=== PATIENT | female | born 1995 | race Caucasian/White ===

== ENCOUNTER 2016-08-22 19:57 | Inpatient (IN) | payer BC ==
[~2016-08-22] VITALS: Ht 165.1 cm; Wt 56.5 kg
[2016-08-22 20:02] VITALS: BP 107/70; PULSE 117; RESP 20; TEMP 99.1; O2SAT 100
[2016-08-22 20:08] VITALS: BP 107/70; PULSE 123; RESP 18; O2SAT 100
[2016-08-22] MEDS ORDERED: SODIUM CHLOR 0.9% 1000 ML INJ 1,000 ML IV ONE ×2 (20:15→21:15)
[2016-08-22] MEDS ORDERED: ONDANSETRON HCL 4 MG/2 ML VIAL IV PUSH ONE (20:15)
[2016-08-22 20:45] LABS: AUTOMATED NEUTROPHIL # 0.9 TH/MM3 (1.8-7.7); BASOPHIL % 0.3 % (0.0-2.0); EOSINOPHIL % 0.2 % (0.0-4.0); HEMATOCRIT 40.4 % (35.0-46.0); LYMPH % 33.2 % (9.0-44.0); LYMPHOCYTE # 0.5 TH/MM3 (1.0-4.8); MEAN CELL VOLUME 86.6 FL (80.0-100.0); MEAN CORPUSCULAR HEMOGLOBIN 29.7 PG (27.0-34.0); MEAN CORPUSCULAR HGB CONC 34.3 % (32.0-36.0); MONO % 0.6 % (0.0-8.0); NEUT % 65.7 % (16.0-70.0); PLATELET COUNT 182 TH/MM3 (150-450); RED BLOOD COUNT 4.67 MIL/MM3 (4.00-5.30); RED CELL DISTRIBUTION WIDTH 13.7 % (11.6-17.2); WHITE BLOOD COUNT 1.4 TH/MM3 (4.0-11.0)
[2016-08-22 20:47] LABS: HEMO FLAGS AUTO DIFF
[2016-08-22 20:59] LABS: ANION GAP 10 MEQ/L (5-15); AST (GOT) 124 U/L (16-38); BICARBONATE 24.3 MEQ/L (21.0-32.0); BLOOD UREA NITROGEN 8 MG/DL (7-18); CHLORIDE 110 MEQ/L (98-107); GLOMERULAR FILTRATION RATE 76 ML/MIN (>89); POTASSIUM 3.6 MEQ/L (3.5-5.1); SODIUM (NA) 144 MEQ/L (136-145)
[2016-08-22 21:00] LABS: ALT (GPT) 109 U/L (9-42)
[2016-08-22 21:02] LABS: ALKALINE PHOSPHATASE 66 U/L (45-117); TOTAL BILIRUBIN ADULT 0.9 MG/DL (0.2-1.0)
[2016-08-22 21:19] LABS: BANDS 5 % (0-6); POLYS (SEG NEUTROPHILS) 64 % (16-70); WBC DIFF SAMPLE 100
[2016-08-22 21:20] LABS: PLATELET ESTIMATE SMEAR NORMAL (NORMAL); PLATELET MORPHOLOGY NORMAL (NORMAL); SCAN/DIFF FINAL DIFF MANUAL
--- NOTE | 2016-08-22 21:33 | RADRPT ---
EXAM DATE/TIME: 08/22/2016 21:15 [place] COMPARISON: No previous studies available for comparison. INDICATIONS : Cough starting today MEDICAL HISTORY : None. SURGICAL HISTORY : None. ENCOUNTER: Initial ACUITY: 1 day PAIN SCORE: Non-responsive. LOCATION: Bilateral chest FINDINGS: PA and lateral views of the chest demonstrate the lungs to be symmetrically aerated without evidence of mass, infiltrate or effusion. The cardiomediastinal contours are unremarkable. Osseous structure s are intact. CONCLUSION: No acute disease. Curtis Fairbanks MD on August 22, 2016 at 21:31 Board Certified Radiologist. This report was verified electronically.
[2016-08-22 22:59] LABS: BACTERIA, URINE MOD /hpf; BLOOD, URINE LARGE (NEG); COMMENT (UR) CULTURE INDICATED; CULTURE IF INDICATED CULTURE INDICATED; GLUCOSE,URINE NEG (NEG); KETONE, URINE 10 mg/dL (NEG); MUCUS URINE FEW /lpf (OCC); NITRITE,URINE NEG (NEG); SQUAMOUS EPITHELIAL CELL URINE <1 /hpf (0-5); URINE COLOR YELLOW (YELLW/STRAW)
[2016-08-22 23:15] LABS: AMPHETAMINE, URINE POS (NEG); BARBITURATES, URINE NEG (NEG); COCAINE, URINE NEG (NEG)
[2016-08-22] MEDS ORDERED: cefTRIAXone INJ 1,000 MG in SODIUM CHLORIDE 0.9% INJ 100 ML IV ONE (23:15)
--- NOTE | 2016-08-22 23:22 | PD ---
HPI Chief Complaint: Alcohol/Drug Intoxication Time Seen by Provider: 20:09 Travel History International Travel<30 days: No Contact w/Intl Traveler<30days: No Traveled to known affect area: No History of Present Illness HPI Patient is a 20 year old female, with history of IVDA, who comes in after she injected herself today with what she thought was heroine. She then called 9-1-1 because she says she was not feeling safe. She has some lower abdominal pain, but denies any other complaints. She has not had chest pain, fever, chills. PFSH Past Medical History Tetanus Vaccination: < 5 Years Influenza Vaccination: No ?: Unknown LMP: 08/20/16 : 0 Past Surgical History Appendectomy: Yes Social History Alcohol Use: No Tobacco Use: Yes Substance Use: Yes (HEROIN) Allergies-Medications (Allergen,Severity, Reaction): Coded Allergies: No Known Allergies (Unverified , 08/22/16) Reported Meds & Prescriptions Reported Meds & Active Scripts Active No Active Prescriptions or Reported Medications Review of Systems Except as stated in HPI: all other systems reviewed are Neg General / Constitutional: No: Fever, Chills HENT: No: Headaches, Lightheadedness Cardiovascular: No: Chest Pain or Discomfort Respiratory: No: Shortness of Breath Gastrointestinal: Positive: Abdominal Pain, No: Nausea, Vomiting Musculoskeletal: No: Myalgias Skin: No Rash, No Change in Pigmentation Neurologic: No: Weakness, Dizziness Physical Exam Narrative GENERAL: Awake and alert, in no acute distress. SKIN: Focused skin assessment warm/dry. HEAD: Atraumatic. Normocephalic. EYES: Pupils equal and round. No scleral icterus. ENT: No nasal bleeding or discharge. Mucous membranes pink and moist. NECK: Trachea midline. No JVD. CARDIOVASCULAR: Tachycardia. No murmur appreciated. RESPIRATORY: No accessory muscle use. Clear to auscultation. Breath sounds equal bilaterally. GASTROINTESTINAL: Abdomen soft, nondistended. Tender to palpation of the lower abdomen. No rebound or guarding. MUSCULOSKELETAL: No obvious deformities. No clubbing. No cyanosis. No edema. NEUROLOGICAL: Awake and alert. No obvious cranial nerve deficits. Motor grossly within normal limits. Normal speech. PSYCHIATRIC: Appropriate mood and affect; insight and judgment normal. Data Data Last Documented VS Vital Signs Date Time Temp Pulse Resp B/P Pulse Ox O2 Delivery O2 Flow Rate FiO2 08/22/16 20:08 125 20 100 Room Air 08/22/16 20:08 107/70 08/22/16 20:02 99.1 Orders Complete Blood Count With Diff (08/22/16 20:10) Comprehensive Metabolic Panel (08/22/16 20:10) Ed Urine Pregnancytest Poc (08/22/16 20:10) Sodium Chlor 0.9% 1000 Ml Inj (Ns 1000 M (08/22/16 20:15) Ondansetron Inj (Zofran Inj) (08/22/16 20:15) Urinalysis - C+S If Indicated (08/22/16 20:58) Chest, Pa & Lat (08/22/16 ) Drug Screen, Random Urine (08/22/16 21:05) Sodium Chlor 0.9% 1000 Ml Inj (Ns 1000 M (08/22/16 21:15) Urine Culture (08/22/16 22:10) Ceftriaxone Inj (Rocephin Inj) (08/22/16 23:15) Blood Culture (08/22/16 23:21) Admit Order (Ed Use Only) (08/22/16 ) Vancomycin Inj (Vancomycin Inj) (08/22/16 23:30) Admit To Inpatient (08/22/16 ) Vital Signs (Adult) Q4H (08/22/16 23:17) Activity Oob With Assistance (08/22/16 23:17) Computer Forensics Analyst / Telemetry .CONTINUOUS (08/22/16:17) Intake + Output SINDHU.QSHIFT (08/22/16 23:17) Diet Regular Basic (08/23/16 Breakfast) Sodium Chlor 0.9% 1000 Ml Inj (Ns 1000 M (08/22/16 23:17) Sodium Chloride 0.9% Flush (Ns Flush) (08/22/16 23:30) Sodium Chloride 0.9% Flush (Ns Flush) (08/23/16 09:00) Ondansetron Inj (Zofran Inj) (08/22/16 23:30) Comprehensive Metabolic Panel (08/23/16 06:00) Complete Blood Count With Diff (08/23/16 06:00) Scd Bilateral/Knee High SINDHU.BID (08/22/16 23:17) Saw Bilateral/Knee High SINDHU.QSHIFT (08/22/16 23:17) Acetaminophen (Tylenol) (08/22/16 23:30) Oxycodone (Roxicodone) (08/22/16 23:30) Oxycodone (Roxicodone) (08/22/16 23:30) Docusate Sodium-Senna (Anju-Colace) (08/23/16 09:00) Magnesium Hydroxide Liq (Milk Of Magnesi (08/22/16 23:30) Sennosides (Senokot) (08/22/16 23:30) Bisacodyl Supp (Dulcolax Supp) (08/22/16 23:30) Lactulose Liq (Lactulose Liq) (08/22/16 23:30) Inpatient Certification (08/22/16 ) Cefepime Inj (Maxipime Inj) (08/23/16 09:00) Vancomycin Consult Pharmacy (Vancomycin (08/22/16 23:30) Labs Laboratory Tests Test 08/22/16 08/22/16 08/22/16 20:25 22:10 22:15 White Blood Count 1.4 TH/MM3 Red Blood Count 4.67 MIL/MM3 Hemoglobin 13.9 GM/DL Hematocrit 40.4 % Mean Corpuscular Volume 86.6 FL Mean Corpuscular Hemoglobin 29.7 PG Mean Corpuscular Hemoglobin 34.3 % Concent Red Cell Distribution Width 13.7 % Platelet Count 182 TH/MM3 Mean Platelet Volume 8.4 FL Neutrophils (%) (Auto) 65.7 % Lymphocytes (%) (Auto) 33.2 % Monocytes (%) (Auto) 0.6 % Eosinophils (%) (Auto) 0.2 % Basophils (%) (Auto) 0.3 % Neutrophils # (Auto) 0.9 TH/MM3 Lymphocytes # (Auto) 0.5 TH/MM3 Monocytes # (Auto) 0.0 TH/MM3 Eosinophils # (Auto) 0.0 TH/MM3 Basophils # (Auto) 0.0 TH/MM3 CBC Comment AUTO DIFF Differential Total Cells 100 Counted Neutrophils % (Manual) 64 % Band Neutrophils % 5 % Lymphocytes % 31 % Neutrophils # (Manual) 1.0 TH/MM3 Differential Comment FINAL DIFF MANUAL Platelet Estimate NORMAL Platelet Morphology Comment NORMAL Sodium Level 144 MEQ/L Potassium Level 3.6 MEQ/L Chloride Level 110 MEQ/L Carbon Dioxide Level 24.3 MEQ/L Anion Gap 10 MEQ/L Blood Urea Nitrogen 8 MG/DL Creatinine 0.95 MG/DL Estimat Glomerular Filtration 76 ML/MIN Rate Random Glucose 100 MG/DL Calcium Level 8.6 MG/DL Total Bilirubin 0.9 MG/DL Aspartate Amino Transf 124 U/L (AST/SGOT) Alanine Aminotransferase 109 U/L (ALT/SGPT) Alkaline Phosphatase 66 U/L Total Protein 6.3 GM/DL Albumin 3.8 GM/DL Urine Color YELLOW Urine Turbidity HAZY Urine pH 7.0 Urine Specific [place] 1.007 Urine Protein TRACE mg/dL Urine Glucose (UA) NEG mg/dL Urine Ketones 10 mg/dL Urine Occult Blood LARGE Urine Nitrite NEG Urine Bilirubin NEG Urine Urobilinogen LESS THAN 2.0 MG/DL Urine Leukocyte Esterase SMALL Urine RBC 143 /hpf Urine WBC 18 /hpf Urine Squamous Epithelial <1 /hpf Cells Urine Bacteria MOD /hpf Urine Mucus FEW /lpf Microscopic Urinalysis Comment CULTURE INDICATED Urine Opiates Screen NEG Urine Barbiturates Screen NEG Urine Amphetamines Screen POS Urine Benzodiazepines Screen NEG Urine Cocaine Screen NEG Urine Cannabinoids Screen NEG MDM Medical Decision Making Medical Screen Exam Complete: Yes Emergency Medical Condition: Yes Differential Diagnosis Intoxication versus UTI versus dehydration Narrative Course Patient is a 20-year-old female who comes in after she injected herself with drugs. She is found to be tachycardic. IV established, labs sent. Labs showing neutropenia with total neutrophils of 900. Urinalysis is positive for UTI. Patient given Rocephin and vancomycin was added. Tox screen is positive for amphetamines, not opiates. Patient given 2 L of IV fluids. She will be admitted for further management. Diagnosis Primary Impression: Neutropenia Qualified Code: D70.9 - Neutropenia, unspecified type Additional Impression: UTI (urinary tract infection) Qualified Code: N30.00 - Acute cystitis without hematuria Admitting Information Admitting Physician Requests: Admit Scripts No Active Prescriptions or Reported Meds Laura Lake MD Aug 22, 2016 23:22
--- NOTE | 2016-08-22 23:24 | HHI.HP ---
[facility] Service [facility] Primary Care Physician No Primary Care Physician Admission Diagnosis Sepsis, neutropenia Diagnoses: (1) Sepsis Diagnosis: Principal (2) UTI (urinary tract infection) Diagnosis: Principal (3) Neutropenia Diagnosis: Principal (4) IVDU (intravenous drug user) Diagnosis: Principal (5) Tobacco abuse Diagnosis: Principal Travel History International Travel<30 Days: No Contact w/Intl Traveler <30 Da: No Traveled to Known Affected Are: No History of Present Illness This is a 20-year-old female with a PMH of IVDU with Heroin and Tobacco Abuse who the ER by EMS after complaints of not feeling well shortly after injecting Heroin. Per patient, started to feel "weird" after using Heroin. Upon EMS arrival, BP 63/43 s/p IVF w/ improvement. Denies fever, chills, cough or sick contacts. On arrival, BP 107/70, HR 117, O2 sat 100% on RA, Temp 99.1. WBC 1.4 , no previous labs for comparison. Chemistry unremarkable support GFR 76. LFTs mildly elevated no previous labs for comparison. UA positive for UTI and hematuria. Urine Drug Screen positive for amphetamines. CXR with no acute findings. S/p Urine/Blood Cultures in ER and Vanc/Rocephin Review of Systems Except as stated in HPI: all other systems reviewed are Neg ROS: 14 point review of systems otherwise negative. Past Family Social History Past Medical History PMH: IVDU with Heroin and Tobacco Abuse Past Surgical History PAST SURGICAL HISTORY: Appendectomy Allergies: Coded Allergies: No Known Allergies (Unverified , 08/22/16) Family History PAST FAMILY HISTORY: Reviewed. No h/o DM or CAD Social History PAST SOCIAL HISTORY: Negative for alcohol. Positive for tobacco. IVDU with Heroin Physical Exam Vital Signs Vital Signs Date Time Temp Pulse Resp B/P Pulse Ox O2 Delivery O2 Flow Rate FiO2 08/22/16 20:08 125 20 100 Room Air 08/22/16 20:08 126 20 08/22/16 20:08 123 18 107/70 100 Room Air 08/22/16 20:02 99.1 117 20 107/70 100 Physical Exam PE: GENERAL: Young female in no acute distress. HEENT: PERRLA, EOMI. No scleral icterus or conjunctival pallor. No lid lag or facial droop. CARDIOVASCULAR: Regular rate and rhythm. No obvious murmurs to auscultation. No chest tenderness to palpation. RESPIRATORY: No obvious rhonchi or wheezing. Clear to auscultation. Breath sounds equal bilaterally. GASTROINTESTINAL: Abdomen soft, non-tender, nondistended. BS normal. MUSCULOSKELETAL: Extremities without clubbing, cyanosis, or edema. No obvious deformities. NEUROLOGICAL: Awake, alert and oriented x4. No focal neurologic deficits. Moving both upper and lower extremities spontaneously. Laboratory Laboratory Tests Test 08/22/16 08/22/16 20:25 22:10 White Blood Count 1.4 Red Blood Count 4.67 Hemoglobin 13.9 Hematocrit 40.4 Mean Corpuscular Volume 86.6 Mean Corpuscular Hemoglobin 29.7 Mean Corpuscular Hemoglobin 34.3 Concent Red Cell Distribution Width 13.7 Platelet Count 182 Mean Platelet Volume 8.4 Neutrophils (%) (Auto) 65.7 Lymphocytes (%) (Auto) 33.2 Monocytes (%) (Auto) 0.6 Eosinophils (%) (Auto) 0.2 Basophils (%) (Auto) 0.3 Neutrophils # (Auto) 0.9 Lymphocytes # (Auto) 0.5 Monocytes # (Auto) 0.0 Eosinophils # (Auto) 0.0 Basophils # (Auto) 0.0 CBC Comment AUTO DIFF Differential Total Cells 100 Counted Neutrophils % (Manual) 64 Band Neutrophils % 5 Lymphocytes % 31 Neutrophils # (Manual) 1.0 Differential Comment FINAL DIFF MANUAL Platelet Estimate NORMAL Platelet Morphology Comment NORMAL Sodium Level 144 Potassium Level 3.6 Chloride Level 110 Carbon Dioxide Level 24.3 Anion Gap 10 Blood Urea Nitrogen 8 Creatinine 0.95 Estimat Glomerular Filtration 76 Rate Random Glucose 100 Calcium Level 8.6 Total Bilirubin 0.9 Aspartate Amino Transf 124 (AST/SGOT) Alanine Aminotransferase 109 (ALT/SGPT) Alkaline Phosphatase 66 Total Protein 6.3 Albumin 3.8 Urine Color YELLOW Urine Turbidity HAZY Urine pH 7.0 Urine Specific [place] 1.007 Urine Protein TRACE Urine Glucose (UA) NEG Urine Ketones 10 Urine Occult Blood LARGE Urine Nitrite NEG Urine Bilirubin NEG Urine Urobilinogen LESS THAN 2.0 Urine Leukocyte Esterase SMALL Urine RBC 143 Urine WBC 18 Urine Squamous Epithelial <1 Cells Urine Bacteria MOD Urine Mucus FEW Microscopic Urinalysis Comment CULTURE INDICATED Date/Time Procedure Status Source Growth 08/22/16 22:10 Urine Culture Received Urine Clean Catch Pending Result Diagram: 08/22/16202408/22/162024 Assessment and Plan Problem List: (1) Sepsis ICD Code: A41.9 Status: Acute (2) Neutropenia ICD Code: D70.9 Status: Acute (3) UTI (urinary tract infection) ICD Code: N39.0 Status: Acute (4) IVDU (intravenous drug user) ICD Code: F19.90 Status: Acute (5) Tobacco abuse ICD Code: Z72.0 Status: Acute Assessment and Plan A/P: 1. Sepsis: Temp 99.1, WBC 1.4, Source-UTI, possible bacteremia from IVDU. S/ p Blood/Urine Culture, Vanc/Rocephin in ER. Follow up cultures, continue w/ IV Abx, IVF for hydration. 2. Neutropenia: WBC 1.4, no previous labs for comparison. Likely secondary to sepsis. Denies known h/o HIV. Will continue w/ treatment as above, repeat labs in am. 3. UTI: U/a w/ significant UTI, IV Abx, IVF. 4. IVDU: w/ Heroin, recent ingestion, Urine Drug Screen positive for Amphetamines. Ativan prn for withdrawal. 5. Tobacco Abuse: Pt counselled. Ativan/NicoDerm prn. 6. DVT Prophylaxis: SCD/Teds. 7. Social work for d/c planning as needed. 8. Case discussed w/ ER physician at length Physician Certification 2 Midnight Certification Type: Admission for Inpatient Services Order for Inpatient Services The services are ordered in accordance with Medicare regulations or non- Medicare payer requirements, as applicable. In the case of services not specified as inpatient-only, they are appropriately provided as inpatient services in accordance with the 2-midnight benchmark. Estimated LOS (days): 2 days is the estimated time the patient will need to remain in the hospital, assuming treatment plan goals are met and no additional complications. Post-Hospital Plan: Not yet determined Problem Qualifiers (1) UTI (urinary tract infection): Qualified Code: N30.00 - Acute cystitis without hematuria (2) Neutropenia: Qualified Code: D70.9 - Neutropenia, unspecified type Delia Pickett MD Aug 22, 2016 23:24
[2016-08-22] MEDS ORDERED: ONDANSETRON HCL 4 MG/2 ML VIAL IVP PRN (23:30)
[2016-08-22] MEDS ORDERED: BISACODYL 10 MG SUPP RECTAL PRN (23:30)
[2016-08-22] MEDS ORDERED: SENNOSIDES 8.6 MG TAB PO PRN (23:30)
[2016-08-22] MEDS ORDERED: Vancomycin Consult Pharmacy 1 EA OTHER SCH (23:30)
[2016-08-22] MEDS ORDERED: ACETAMINOPHEN 325 MG TAB PO PRN (23:30)
[2016-08-22] MEDS ORDERED: MAGNESIUM HYDROXIDE SUSP 30 ML CUP PO PRN (23:30)
[2016-08-22] MEDS ORDERED: VANCOMYCIN INJ 1,000 MG in SODIUM CHLOR 0.9% 250 ML INJ 250 ML IV ONE (23:30)
[2016-08-22] MEDS ORDERED: LACTULOSE SYRUP 20 GM/30 ML CUP PO PRN (23:30)
[2016-08-22] MEDS ORDERED: SODIUM CHLORIDE 0.9% FLUSH 10 ML FLUSH IV FLUSH PRN (23:30)
[2016-08-22] MEDS: SODIUM CHLOR 0.9% 1000 ML INJ 1,000 ML IV SCH (23:49)
[2016-08-22 23:51] VITALS: BP 90/56; PULSE 117; RESP 18; TEMP 98.1; O2SAT 100
[2016-08-23] VITALS (7 sets, daily range): BP systolic 85–105; BP diastolic 44–56; PULSE 90–117; RESP 15–20; TEMP 96.8–99.7; O2SAT 97–100
--- NOTE | 2016-08-23 08:43 | HHI.PR ---
Subjective Remarks Follow-up for sepsis, neutropenia, IV drug use. Patient is currently doing well. Denies any chest pain, shortness of breath, fever or chills. Denies any abdominal pain, nausea or vomiting. Objective Vitals Vital Signs Date Time Temp Pulse Resp B/P Pulse Ox O2 Delivery O2 Flow Rate FiO2 08/23/16 04:00 99.7 115 18 101/49 98 08/23/16 01:42 117 08/23/16 01:10 99.5 114 18 95/50 100 08/22/16 23:51 98.1 117 18 90/56 100 Room Air 08/22/16 20:08 125 20 100 Room Air 08/22/16 20:08 126 20 08/22/16 20:08 123 18 107/70 100 Room Air 08/22/16 20:02 99.1 117 20 107/70 100 I/O 08/22/16 08/22/16 08/22/16 08/23/16 08/23/16 08/23/16 07:00 15:00 23:00 07:00 15:00 23:00 Intake Total 1600 ml Balance 1600 ml Intake Oral 960 ml IV Total 640 ml # Voids 1 Result Diagram: 08/22/16202408/22/162024 Imaging Last Impressions Chest X-Ray 08/22/16 0000 Signed Impressions: Service Date/Time: Monday, August 22, 2016 21:15 - CONCLUSION: No acute disease. Curtis Fairbanks MD Objective Remarks GENERAL: Alert, Oriented x 3, NAD. SKIN: Warm and dry. HEAD: Normocephalic. EYES: No scleral icterus. No injection or drainage. NECK: Supple, trachea midline. No JVD or lymphadenopathy. CARDIOVASCULAR: Regular rhythm, tachycardic without murmurs, gallops, or rubs. RESPIRATORY: Breath sounds equal bilaterally. No accessory muscle use. GASTROINTESTINAL: Abdomen soft, non-tender, nondistended. MUSCULOSKELETAL: No cyanosis, or edema. BACK: Nontender without obvious deformity. No CVA tenderness. Procedures None A/P Problem List: (1) Sepsis ICD Code: A41.9 Status: Acute (2) Neutropenia ICD Code: D70.9 Status: Acute (3) UTI (urinary tract infection) ICD Code: N39.0 Status: Acute (4) IVDU (intravenous drug user) ICD Code: F19.90 Status: Acute (5) Tobacco abuse ICD Code: Z72.0 Status: Acute Assessment and Plan Ms. Khan is a 20-year-old female with a PMH of IVDU with Heroin and Tobacco Abuse who the ER by EMS after complaints of not feeling well shortly after injecting Heroin. Per patient, started to feel "weird" after using Heroin. Upon EMS arrival, BP 63/43 s/p IVF w/ improvement. Denies fever, chills, cough or sick contacts. On arrival, BP 107/70, HR 117, O2 sat 100% on RA, Temp 99.1. WBC 1.4, no previous labs for comparison. Chemistry unremarkable support GFR 76. LFTs mildly elevated no previous labs for comparison. UA positive for UTI and hematuria. Urine Drug Screen positive for amphetamines. CXR with no acute findings. S/p Urine/Blood Cultures in ER and Vanc/Rocephin. - Sepsis (On admission, WBC 1.4, HR 117, suspected infection UTI and/or Bacteremia). - Possible UTI - Possible bacteremia - WBC 1.4 --> 15.5. Will get Lactic acid level. - Continue Cefepime 1g Q12hrs, Vancomycin - pharmacy to dose. - Continue IV fluid @ 200cc/hour. - Follow Culture sensitivity. - IVDU - Tobacco abuse - Counselled patient regarding IVDU and tobacco abuse. Patient seems to be motivated to quit substance abuse. Full code. SCDs, Ambulation. Problem Qualifiers (1) Neutropenia: Qualified Code: D70.9 - Neutropenia, unspecified type (2) UTI (urinary tract infection): Qualified Code: N30.00 - Acute cystitis without hematuria Paloma Flores DO Aug 23, 2016 8:42 am
[2016-08-23] MEDS: DOCUSATE SODIUM 50 MG/SENNA 8.6 MG TAB PO SCH ×2 (08:57→21:42)
[2016-08-23] MEDS: SODIUM CHLORIDE 0.9% FLUSH 10 ML FLUSH IV FLUSH SCH ×2 (09:00→20:11)
[2016-08-23 09:01] LABS: AUTOMATED NEUTROPHIL # 14.2 TH/MM3 (1.8-7.7); BASOPHIL % 0.1 % (0.0-2.0); HEMATOCRIT 35.8 % (35.0-46.0); LYMPH % 4.8 % (9.0-44.0); LYMPHOCYTE # 0.8 TH/MM3 (1.0-4.8); MEAN CELL VOLUME 87.9 FL (80.0-100.0); MEAN CORPUSCULAR HEMOGLOBIN 29.2 PG (27.0-34.0); MEAN CORPUSCULAR HGB CONC 33.2 % (32.0-36.0); MONO % 3.3 % (0.0-8.0); NEUT % 91.8 % (16.0-70.0); PLATELET COUNT 123 TH/MM3 (150-450); RED BLOOD COUNT 4.07 MIL/MM3 (4.00-5.30); RED CELL DISTRIBUTION WIDTH 13.7 % (11.6-17.2); WHITE BLOOD COUNT 15.5 TH/MM3 (4.0-11.0)
[2016-08-23] MEDS: CEFEPIME INJ 1,000 MG in SODIUM CHLORIDE 0.9% INJ 100 ML IV SCH ×2 (09:05→21:42)
[2016-08-23] MEDS: SODIUM CHLOR 0.9% 1000 ML INJ 1,000 ML IV SCH ×4 (09:06→21:44)
[2016-08-23 09:38] LABS: BICARBONATE 22.8 MEQ/L (21.0-32.0); CALCIUM-PROTEIN CORRECTED 8.3 MG/DL (8.5-10.1); POTASSIUM 3.1 MEQ/L (3.5-5.1); TOTAL BILIRUBIN ADULT 0.4 MG/DL (0.2-1.0)
[2016-08-23 09:41] LABS: HEMO FLAGS AUTO DIFF
[2016-08-23 10:14] LABS: BETA HCG QUANT LESS THAN 1 MIU/ML (0-5)
[2016-08-23 10:15] LABS: BANDS 22 % (0-6); NEUTROPHIL # MANUAL DIFF 14.9 TH/MM3 (1.8-7.7); POLYS (SEG NEUTROPHILS) 74 % (16-70); WBC DIFF SAMPLE 100
[2016-08-23 10:16] LABS: PLATELET ESTIMATE SMEAR LOW (NORMAL); PLATELET MORPHOLOGY NORMAL (NORMAL); SCAN/DIFF FINAL DIFF MANUAL
[2016-08-23] MEDS: VANCOMYCIN INJ 800 MG in SODIUM CHLOR 0.9% 250 ML INJ 250 ML IV SCH ×2 (11:58→20:13)
[2016-08-24] VITALS (7 sets, daily range): BP systolic 96–114; BP diastolic 55–67; PULSE 74–97; RESP 15–19; TEMP 96.4–98; O2SAT 94–98
[2016-08-24] MEDS: VANCOMYCIN INJ 800 MG in SODIUM CHLOR 0.9% 250 ML INJ 250 ML IV SCH ×2 (04:44→17:41)
[2016-08-24] MEDS: SODIUM CHLOR 0.9% 1000 ML INJ 1,000 ML IV SCH ×3 (04:44→20:27)
[2016-08-24] MEDS: DOCUSATE SODIUM 50 MG/SENNA 8.6 MG TAB PO SCH ×2 (08:02→20:27)
[2016-08-24] MEDS: CEFEPIME INJ 1,000 MG in SODIUM CHLORIDE 0.9% INJ 100 ML IV SCH ×2 (08:02→20:27)
[2016-08-24] MEDS: SODIUM CHLORIDE 0.9% FLUSH 10 ML FLUSH IV FLUSH SCH ×2 (08:12→20:27)
--- NOTE | 2016-08-24 08:46 | HHI.PR ---
Subjective Remarks Follow-up for sepsis, neutropenia, IV drug use. Ms. Khan is currently doing well. She is more alert today. Denies any chest pain, shortness of breath, fever or chills. She is tolerating diet well. Objective Vitals Vital Signs Date Time Temp Pulse Resp B/P Pulse Ox O2 Delivery O2 Flow Rate FiO2 08/24/16 08:00 98.0 97 15 110/55 94 08/24/16 04:00 96.7 74 19 110/66 98 08/24/16 00:00 97.0 91 16 96/55 97 08/23/16 20:01 100 08/23/16 20:00 96.8 90 17 105/56 97 08/23/16 16:00 98.5 94 20 92/52 100 I/O 08/23/16 08/23/16 08/23/16 08/24/16 08/24/16 08/24/16 07:00 15:00 23:00 07:00 15:00 23:00 Intake Total 1600 ml 480 ml 2172 ml Output Total 600 ml 400 ml 400 ml Balance 1600 ml -120 ml -400 ml 1772 ml Intake Oral 960 ml 480 ml 240 ml IV Total 640 ml 1932 ml Output Urine Total 600 ml 400 ml 400 ml # Voids 1 3 # Bowel Movements 1 0 Result Diagram: 08/23/16 0830 08/23/16 0830 Imaging Last Impressions Chest X-Ray 08/22/16 0000 Signed Impressions: Service Date/Time: Monday, August 22, 2016 21:15 - CONCLUSION: No acute disease. Curtis Fairbanks MD Objective Remarks GENERAL: Alert, Oriented x 3, NAD. SKIN: Warm and dry. HEAD: Normocephalic. EYES: No scleral icterus. No injection or drainage. NECK: Supple, trachea midline. No JVD or lymphadenopathy. CARDIOVASCULAR: Regular rate and rhythm without murmurs, gallops, or rubs. RESPIRATORY: Breath sounds equal bilaterally. No accessory muscle use. GASTROINTESTINAL: Abdomen soft, non-tender, nondistended. MUSCULOSKELETAL: No cyanosis, or edema. BACK: Nontender without obvious deformity. No CVA tenderness. Procedures None A/P Problem List: (1) Sepsis ICD Code: A41.9 Status: Acute (2) Neutropenia ICD Code: D70.9 Status: Acute (3) UTI (urinary tract infection) ICD Code: N39.0 Status: Acute (4) IVDU (intravenous drug user) ICD Code: F19.90 Status: Acute (5) Tobacco abuse ICD Code: Z72.0 Status: Acute Assessment and Plan Ms. Khan is a 20-year-old female with a PMH of IVDU with Heroin and Tobacco Abuse who the ER by EMS after complaints of not feeling well shortly after injecting Heroin. Per patient, started to feel "weird" after using Heroin. Upon EMS arrival, BP 63/43 s/p IVF w/ improvement. Denies fever, chills, cough or sick contacts. On arrival, BP 107/70, HR 117, O2 sat 100% on RA, Temp 99.1. WBC 1.4, no previous labs for comparison. Chemistry unremarkable support GFR 76. LFTs mildly elevated no previous labs for comparison. UA positive for UTI and hematuria. Urine Drug Screen positive for amphetamines. CXR with no acute findings. S/p Urine/Blood Cultures in ER and Vanc/Rocephin. - Sepsis (On admission, WBC 1.4, HR 117, suspected infection UTI and/or Bacteremia). - Possible UTI - Possible bacteremia - WBC 1.4 --> 15.5. Lactic acid was 2.8. - Continue Cefepime 1g Q12hrs, Vancomycin - pharmacy to dose. - Continue IV fluid @ 200cc/hour. - Follow Culture sensitivity. - We'll de-escalate antibiotics based on the culture results. - Hypokalemia - potassium 3.1. - We'll replace potassium with KCl IV. - CBC, BMP in the morning. - IVDU - Tobacco abuse - Counselled patient regarding IVDU and tobacco abuse. Patient seems to be motivated to quit substance abuse. Full code. SCDs, Ambulation. Problem Qualifiers (1) Neutropenia: Qualified Code: D70.9 - Neutropenia, unspecified type (2) UTI (urinary tract infection): Qualified Code: N30.00 - Acute cystitis without hematuria Paloma Flores DO Aug 24, 2016 8:46 am
[2016-08-24] MEDS: POTASSIUM CHLOR 20 MEQ PREMIX 100 ML IV SCH ×2 (09:34→11:58)
[2016-08-24] MEDS ORDERED: PHARMACY ORDERED LAB ONE (11:45)
[2016-08-25] VITALS (7 sets, daily range): BP systolic 99–117; BP diastolic 59–68; PULSE 63–78; RESP 16–20; TEMP 96.4–97.9; O2SAT 95–98
[2016-08-25] MEDS: SODIUM CHLOR 0.9% 1000 ML INJ 1,000 ML IV SCH (00:15)
[2016-08-25] MEDS: VANCOMYCIN 1,000 MG/NS 250 ML IV SCH ×4 (00:20→09:10)
[2016-08-25 08:17] LABS: AUTOMATED NEUTROPHIL # 4.2 TH/MM3 (1.8-7.7); BASOPHIL % 0.3 % (0.0-2.0); EOSINOPHIL # 0.1 TH/MM3 (0-0.4); EOSINOPHIL % 1.8 % (0.0-4.0); HEMO FLAGS DIFF FINAL; LYMPHOCYTE # 2.1 TH/MM3 (1.0-4.8); MEAN CELL VOLUME 86.4 FL (80.0-100.0); MEAN CORPUSCULAR HEMOGLOBIN 29.1 PG (27.0-34.0); MEAN CORPUSCULAR HGB CONC 33.7 % (32.0-36.0); MONO % 6.2 % (0.0-8.0); NEUT % 60.7 % (16.0-70.0); PLATELET COUNT 145 TH/MM3 (150-450); RED BLOOD COUNT 4.29 MIL/MM3 (4.00-5.30); RED CELL DISTRIBUTION WIDTH 13.6 % (11.6-17.2); WHITE BLOOD COUNT 6.9 TH/MM3 (4.0-11.0)
[2016-08-25 08:51] LABS: BICARBONATE 25.9 MEQ/L (21.0-32.0); POTASSIUM 3.7 MEQ/L (3.5-5.1)
[2016-08-25] MEDS: SODIUM CHLORIDE 0.9% FLUSH 10 ML FLUSH IV FLUSH SCH ×2 (09:00→21:21)
[2016-08-25] MEDS: CEFEPIME INJ 1,000 MG in SODIUM CHLORIDE 0.9% INJ 100 ML IV SCH (09:09)
[2016-08-25] MEDS: DOCUSATE SODIUM 50 MG/SENNA 8.6 MG TAB PO SCH ×2 (09:10→21:00)
--- NOTE | 2016-08-25 11:55 | HHI.PR ---
Subjective Remarks Follow-up for sepsis, neutropenia, IV drug use. Patient is doing well. Denies any chest pain, shortness of breath, fever or chills. Denies any dysuria, abdominal pain. She is ambulating well in the room. Her mother came from [place] yesterday. Objective Vitals Vital Signs Date Time Temp Pulse Resp B/P Pulse Ox O2 Delivery O2 Flow Rate FiO2 08/25/16 07:50 96.8 63 20 114/63 97 08/25/16 04:00 96.5 66 16 111/66 95 08/25/16 00:00 96.4 78 17 99/59 96 08/24/16 20:19 74 08/24/16 20:00 96.9 79 18 105/67 97 08/24/16 16:00 96.9 80 15 112/66 97 08/24/16 12:00 97.6 79 16 114/61 97 I/O 08/24/16 08/24/16 08/24/16 08/25/16 08/25/16 08/25/16 07:00 15:00 23:00 07:00 15:00 23:00 Intake Total 2172 ml 1200 ml 2985 ml 120 ml Output Total 400 ml 500 ml 1050 ml Balance 1772 ml 1200 ml 2485 ml -930 ml Intake Oral 240 ml 1000 ml 240 ml 120 ml IV Total 1932 ml 200 ml 2745 ml Output Urine Total 400 ml 500 ml 1050 ml # Voids 4 # Bowel Movements 0 0 1 0 Result Diagram: 08/25/16 0658 08/25/16 0658 Imaging Last Impressions Chest X-Ray 08/22/16 0000 Signed Impressions: Service Date/Time: Monday, August 22, 2016 21:15 - CONCLUSION: No acute disease. Curtis Fairbanks MD Objective Remarks GENERAL: Alert, Oriented x 3, NAD. SKIN: Warm and dry. HEAD: Normocephalic. EYES: No scleral icterus. No injection or drainage. NECK: Supple, trachea midline. No JVD or lymphadenopathy. CARDIOVASCULAR: Regular rate and rhythm without murmurs, gallops, or rubs. RESPIRATORY: Breath sounds equal bilaterally. No accessory muscle use. GASTROINTESTINAL: Abdomen soft, non-tender, nondistended. MUSCULOSKELETAL: No cyanosis, or edema. BACK: Nontender without obvious deformity. No CVA tenderness. Procedures None A/P Problem List: (1) Sepsis ICD Code: A41.9 Status: Acute (2) Neutropenia ICD Code: D70.9 Status: Acute (3) UTI (urinary tract infection) ICD Code: N39.0 Status: Acute (4) IVDU (intravenous drug user) ICD Code: F19.90 Status: Acute (5) Tobacco abuse ICD Code: Z72.0 Status: Acute Assessment and Plan Ms. Khan is a 20-year-old female with a PMH of IVDU with Heroin and Tobacco Abuse who the ER by EMS after complaints of not feeling well shortly after injecting Heroin. Per patient, started to feel "weird" after using Heroin. Upon EMS arrival, BP 63/43 s/p IVF w/ improvement. Denies fever, chills, cough or sick contacts. On arrival, BP 107/70, HR 117, O2 sat 100% on RA, Temp 99.1. WBC 1.4, no previous labs for comparison. Chemistry unremarkable support GFR 76. LFTs mildly elevated no previous labs for comparison. UA positive for UTI and hematuria. Urine Drug Screen positive for amphetamines. CXR with no acute findings. S/p Urine/Blood Cultures in ER and Vanc/Rocephin. - Sepsis (On admission, WBC 1.4, HR 117, suspected infection UTI and/or Bacteremia). - Possible UTI - Possible bacteremia - WBC 1.4 --> 15.5. Lactic acid was 2.8. - Patient was on Cefepime 1g Q12hrs, Vancomycin - Blood cultures as well as urine cultures negative so far - We'll discontinue antibiotics as well as IV fluid. - There is no suspected infectious source. We'll watch her off antibiotics tonight and possibly discharge home tomorrow. - Hypokalemia - potassium 3.1. - Replaced with IV potassium. Potassium is 3.7 today. - IVDU - Tobacco abuse - Counselled patient regarding IVDU and tobacco abuse. Patient seems to be motivated to quit substance abuse. Full code. SCDs, Ambulation. Likely discharge in the morning. Problem Qualifiers (1) Neutropenia: Qualified Code: D70.9 - Neutropenia, unspecified type (2) UTI (urinary tract infection): Qualified Code: N30.00 - Acute cystitis without hematuria Paloma Flores DO Aug 25, 2016 11:55 am
[2016-08-25] MEDS ORDERED: PHARMACY ORDERED LAB ONE (15:45)
[2016-08-25] MEDS: QUEtiapine FUMARATE 25 MG TAB PO SCH (21:20)
[2016-08-26] VITALS: BP 97/56; PULSE 58; RESP 16; TEMP 97.4; O2SAT 97
[2016-08-26 04:45] VITALS: BP 104/53; PULSE 60; RESP 16; TEMP 96.7; O2SAT 98
[2016-08-26 08:00] VITALS: BP 102/57; PULSE 75; RESP 17; TEMP 97.2; O2SAT 98
[2016-08-26] MEDS: DOCUSATE SODIUM 50 MG/SENNA 8.6 MG TAB PO SCH (08:53)
[2016-08-26] MEDS: QUEtiapine FUMARATE 25 MG TAB PO SCH (08:53)
[2016-08-26] MEDS: SODIUM CHLORIDE 0.9% FLUSH 10 ML FLUSH IV FLUSH SCH (08:54)
[2016-08-26] MEDS ORDERED: QUET1TAB7 PO (09:55)
--- NOTE | 2016-08-26 09:57 | HHI.DCPOC ---
Discharge Care Plan Diagnosis: (1) Neutropenia (2) IVDU (intravenous drug user) (3) Tobacco abuse Goals to Promote Your Health * To prevent worsening of your condition and complications * To maintain your health at the optimal level Directions to Meet Your Goals Take your medications as prescribed Follow your dietary instruction Follow activity as directed Keep your appointments as scheduled Take your immunizations and boosters as scheduled If your symptoms worsen call your PCP, if no PCP go to Urgent Care Center or Emergency Room Smoking is Dangerous to Your Health. Avoid second hand smoke Call the 24-hour hour crisis hotline for domestic abuse at Allyssa Brambila MD Aug 26, 2016 09:57
--- NOTE | 2016-08-26 10:05 | HHI.DS ---
Discharge Summary Admission Date Aug 22, 2016 at 23:23 Discharge Date: Aug 26, 2016 Admitting Diagnosis Sepsis, neutropenia (1) Sepsis ICD Code: A41.9 (2) Neutropenia ICD Code: D70.9 (3) UTI (urinary tract infection) ICD Code: N39.0 (4) IVDU (intravenous drug user) ICD Code: F19.90 (5) Tobacco abuse ICD Code: Z72.0 Procedures None Brief History - From Admission HPI from the admitting physician. This is a 20-year-old female with a PMH of IVDU with Heroin and Tobacco Abuse who the ER by EMS after complaints of not feeling well shortly after injecting Heroin. Per patient, started to feel "weird" after using Heroin. Upon EMS arrival, BP 63/43 s/p IVF w/ improvement. Denies fever, chills, cough or sick contacts. On arrival, BP 107/70, HR 117, O2 sat 100% on RA, Temp 99.1. WBC 1.4 , no previous labs for comparison. Chemistry unremarkable support GFR 76. LFTs mildly elevated no previous labs for comparison. UA positive for UTI and hematuria. Urine Drug Screen positive for amphetamines. CXR with no acute findings. S/p Urine/Blood Cultures in ER and Vanc/Rocephin CBC/BMP: 08/25/16 0658 08/25/16 0658 Significant Findings Laboratory Tests Test 08/23/16 08/25/16 08/25/16 12:30 06:58 12:01 Lactic Acid Level 2.8 mmol/L 2.4 mmol/L (0.4-2.0) (0.4-2.0) Platelet Count 145 TH/MM3 (150-450) Chloride Level 109 MEQ/L (98-107) Blood Urea Nitrogen 3 MG/DL (7-18) Imaging Last Impressions Chest X-Ray 08/22/16 0000 Signed Impressions: Service Date/Time: Monday, August 22, 2016 21:15 - CONCLUSION: No acute disease. Curtis Fairbanks MD PE at Discharge GENERAL: Alert, Oriented x 3, NAD. SKIN: Warm and dry. HEAD: Normocephalic. EYES: No scleral icterus. No injection or drainage. NECK: Supple, trachea midline. No JVD or lymphadenopathy. CARDIOVASCULAR: Regular rate and rhythm without murmurs, gallops, or rubs. RESPIRATORY: Breath sounds equal bilaterally. No accessory muscle use. GASTROINTESTINAL: Abdomen soft, non-tender, nondistended. MUSCULOSKELETAL: No cyanosis, or edema. BACK: Nontender without obvious deformity. No CVA tenderness. Pt update on day of discharge Patient reports she is feeling great. Anxious to go home. Long discussion with patient and her mother at bedside. She will be moving back to [place] with her mother and there is plan for inpatient rehab for her there. We discussed the blood cultures are so far negative and we will continue to monitor. They asked for a refill of Seroquel. Hospital Course 20-year-old female with a PMH of IVDU with Heroin and Tobacco Abuse who called EMS after feeling ill from injecting IV drugs. Urine tox screen positive for Amphetamines. Upon EMS arrival, BP 63/43 s/p IVF w/ improvement. Denies fever, chills, cough or sick contacts. On arrival, BP 107/70, HR 117, O2 sat 100% on RA, Temp 99.1. WBC 1.4, no previous labs for comparison. LFTs mildly elevated no previous labs for comparison. UA positive for UTI and hematuria. CXR with no acute findings. S/p Urine/Blood Cultures in ER and Vanc/Rocephin. Patient was admitted for presumed sepsis secondary to UTI and or bacteremia given her IVDU. Her blood cultures were negative to date and urine cultures were negative. Antibiotics were discontinued and the patient continued to improve. The patient's hematologic profile returned to normal. K was low and that was replaced. The patient was counseled extensively regarding drug use. Mother is taking her back to [place]. Patient seems to be motivated to quit substance abuse. Pt Condition on Discharge: Good Discharge Disposition: Discharge Home Discharge Time: <= 30 minutes Discharge Instructions DIET: Follow Instructions for: As Tolerated, No Restrictions Activities you can perform: Regular-No Restrictions Other Activity Instructions: You are advised to seek inpatient rehabilitation for drug use. Illicit drugs are detrimental to your moises. They can cause severe illness or even . Follow up Referrals: PCP Follow-up - 1 Week New Medications: Quetiapine (Quetiapine) 25 Mg Tab 25 MG PO BID #60 TAB Allyssa Brabmila MD Aug 26, 2016 10:05
== END 2016-08-26 10:54 | disposition home or self-care (01) | DRG 872 ==
LOC: NEPE 19:57 → NEDA 23:23 → HOCA 08-23 00:49
PROVIDERS: ADMIT Family Medicine; ATTEND Family Medicine
DX: A41.9 Sepsis, unspecified organism (principal); D70.3 Neutropenia due to infection; N30.01 Acute cystitis with hematuria; F15.10 Other stimulant abuse, uncomplicated; E87.6 Hypokalemia; F17.210 Nicotine dependence, cigarettes, uncomplicated
CPT/HCPCS: 71020; 80048; 80053; 80202; 80307; 81001; 83605; 84702; 84703; 85007; 85025; 85027; 87040; 87086; 87205; 96374; J0692; J0696; J2405; J3370; J3480; J7030; J7050